=== PATIENT | female | born 1945 | race Caucasian/White ===

== ENCOUNTER 2024-09-25 11:00 | Inpatient (IN) | payer MEDICARE, BC ==
[2024-10-02] MEDS ORDERED: Acetaminophen 160 MG (5 ML) UDCUP ONE ×2 (10:03→10:11)
[2024-10-02] MEDS ORDERED: Ketorolac Tromethamine 30 MG (1 mL) VIAL ONE (10:03)
[2024-10-02] MEDS ORDERED: Midazolam HCl 2 mg/2 ml Vial ONE (10:07)
[2024-10-02] MEDS ORDERED: fentaNYL 50 mcg/mL 1 mL Vial ONE ×3 (10:08→12:24)
[2024-10-02 10:37] LABS: Anion Gap 14 mmol/L (10-20); BUN (Urea Nitrogen) 10 mg/dL (9.8-20.1); Calc. Creatinine Clearance 63 mL/min (70-130); Calcium 9.1 mg/dL (7.8-10.44); Carbon Dioxide 22 mmol/L (23-31); Chloride 103 mmol/L (98-107); Estimated GFR 69; Glucose 114 mg/dL (83-110); Sodium 135 mmol/L (136-145)
[2024-10-02] MEDS ORDERED: Famotidine/PF 20 mg/2ml Vial ONE (10:47)
[2024-10-02] MEDS ORDERED: Lidocaine 1% MPF 2 ML VIAL ONE (10:59)
[2024-10-02] MEDS ORDERED: PROPOFOL 20 ML ONE (11:15)
[2024-10-02] MEDS ORDERED: Rocuronium Bromide 10 MG/ML (10ML VIAL) ONE ×2 (11:15→12:11)
[2024-10-02] MEDS ORDERED: Lidocaine 1% PF 5 ML VIAL ONE (11:15)
[2024-10-02] MEDS ORDERED: ceFOXitin 1 GM VIAL ONE ×2 (11:19→13:24)
[2024-10-02] MEDS ORDERED: PHENYLEPHRINE-NS 100 MCG/ML 10 ML SYRINGE ONE ×2 (11:42→13:28)
[2024-10-02] MEDS ORDERED: SUGAMMADEX SODIUM 200 MG/2 ML VIAL ONE (13:15)
[2024-10-02] MEDS ORDERED: Lidocaine 1% w/Epinephrine 1:200K 30 ML VIAL ONE (13:24)
[2024-10-02] MEDS ORDERED: Dexamethasone 4 mg/ml Vial ONE (14:09)
[2024-10-02] MEDS ORDERED: Ondansetron PF 4 MG/2 ML Vial ONE (14:09)
[2024-10-02] MEDS ORDERED: Nitroglycerin 0.4 MG TAB (25 Tab Bottle) SL PRN (14:41)
[2024-10-02] MEDS ORDERED: Ventolin HFA Inhaler 60 PUFF INHALER INH PRN (14:41)
[2024-10-02] MEDS ORDERED: Ipratropium/Albuterol 3 ML NEB NEB PRN (14:41)
[2024-10-02] MEDS ORDERED: Morphine 2 MG/ML VIAL SLOW IVP PRN (14:41)
[2024-10-02] MEDS ORDERED: Hydrochlorothiazide 25 MG TAB PO PRN (14:41)
[2024-10-02] MEDS ORDERED: hydrALAZINE 20 MG/ML VIAL SLOW IVP PRN (14:41)
[2024-10-02] MEDS ORDERED: Promethazine HCl 25 MG/ML VIAL IM PRN (14:41)
[2024-10-02] MEDS ORDERED: Morphine 4 MG/ML VIAL SLOW IVP PRN (14:41)
[2024-10-02] MEDS: D5 1/2 NS w/20 mEq KCL 1,000 ML IV SCH (15:42)
[2024-10-02] MEDS: Ketorolac Tromethamine 30 MG (1 mL) VIAL IVP SCH (17:06)
[2024-10-02 18:23] VITALS: BMI 26.1
[2024-10-02] MEDS: Famotidine 20 MG TAB PO SCH (20:06)
[2024-10-02] MEDS ORDERED: Famotidine/PF 20 mg/2ml Vial SLOW IVP PRN (21:00)
[2024-10-03 03:33] LABS: #Basophils 0.03 10x3/uL (0.0-0.2); #Monocytes 0.85 10x3/uL (0.0-1.1); #Neutrophils 12.17 10x3/uL (1.5-8.4); %Basophils 0.2 % (0.0-2.0); %Lymphocytes 6.9 % (18.0-47.0); %Neutrophils 86.4 % (40.0-75.0); Hematocrit 35.6 % (34.9-44.5); Hemoglobin 11.9 g/dL (12.0-15.5); Mean Corpuscular HGB CONC 33.4 g/dL (32.0-36.0); Mean Corpuscular Volume 89.7 fL (81.6-98.3); Mean Platelet Volume 9.6 fL (7.4-10.4); Platelet Count 384 10x3/uL (150-450); RBC Distribution Width 14.6 % (11.5-14.5); Red Blood Cell (RBC) Count 3.97 10x6/uL (3.90-5.03); White Blood Cell (WBC) Count 14.1 10x3/uL (3.5-10.5)
[2024-10-03 03:44] LABS: Anion Gap 10 mmol/L (10-20); BUN (Urea Nitrogen) 7 mg/dL (9.8-20.1); Calc. Creatinine Clearance 81 mL/min (70-130); Calcium 8.3 mg/dL (7.8-10.44); Carbon Dioxide 20 mmol/L (23-31); Chloride 106 mmol/L (98-107); Estimated GFR 85; Glucose 159 mg/dL (83-110); Potassium 4.3 mmol/L (3.5-5.1); Sodium 132 mmol/L (136-145)
[2024-10-03] MEDS: Levothyroxine Sodium 100 MCG TAB PO SCH (06:03)
[2024-10-03] MEDS: Estradiol 1 MG TAB PO SCH (08:47)
[2024-10-03] MEDS: HYDROcodone/Acetaminophen 7.5/325 mg Tablet PO PRN (08:48)
[2024-10-03] MEDS: Enoxaparin 40 MG (0.4 mL) SYRINGE SC SCH (08:49)
[2024-10-03] MEDS: D5 1/2 NS w/20 mEq KCL 1,000 ML IV SCH (14:11)
[2024-10-03] MEDS: Acetaminophen 325 MG TAB PO PRN (19:59)
[2024-10-04] MEDS: Ondansetron PF 4 MG/2 ML Vial IVP PRN (01:41)
[2024-10-04] MEDS ORDERED: D5 1/2 NS w/20 mEq KCL 1,000 ML IV SCH (11:45)
[2024-10-05 03:24] LABS: #Basophils 0.11 10x3/uL (0.0-0.2); #Eosinophils 0.32 10x3/uL (0.0-0.5); #Monocytes 0.96 10x3/uL (0.0-1.1); #Neutrophils 5.21 10x3/uL (1.5-8.4); %Basophils 1.2 % (0.0-2.0); %Eosinophils 3.5 % (0.0-6.0); %Lymphocytes 27.4 % (18.0-47.0); %Monocytes 10.5 % (0.0-10.0); Hematocrit 35.9 % (34.9-44.5); Hemoglobin 12.1 g/dL (12.0-15.5); Mean Corpuscular HGB CONC 33.7 g/dL (32.0-36.0); Mean Corpuscular Hemoglobin 30.4 pg (27.0-33.0); Mean Corpuscular Volume 90.2 fL (81.6-98.3); Mean Platelet Volume 9.5 fL (7.4-10.4); Platelet Count 369 10x3/uL (150-450); RBC Distribution Width 15.1 % (11.5-14.5); Red Blood Cell (RBC) Count 3.98 10x6/uL (3.90-5.03); White Blood Cell (WBC) Count 9.2 10x3/uL (3.5-10.5)
[2024-10-05 03:56] LABS: Anion Gap 12 mmol/L (10-20); BUN (Urea Nitrogen) 7 mg/dL (9.8-20.1); Calc. Creatinine Clearance 78 mL/min (70-130); Calcium 8.7 mg/dL (7.8-10.44); Carbon Dioxide 24 mmol/L (23-31); Chloride 103 mmol/L (98-107); Estimated GFR 81; Glucose 94 mg/dL (83-110); Potassium 4.3 mmol/L (3.5-5.1); Sodium 135 mmol/L (136-145)
[2024-10-05 12:58] VITALS: BP 138/58; TEMP 98.2
== END 2024-10-05 13:32 | disposition home or self-care (01) | DRG 331 ==
LOC: CSHTELE 10-02 08:38
PROVIDERS: ADMIT Specialist; ATTEND Specialist
PROC: 0DBN4ZG Excision of Sigmoid Colon, Percutaneous Endoscopic Approach, Hand-Assisted (ICD-10-PCS; principal; 2024-10-02)
DX: K57.92 Diverticulitis of intestine, part unspecified, without perforation or abscess without bleeding (principal); Z79.899 Other long term (current) drug therapy; Z79.82 Long term (current) use of aspirin; E03.9 Hypothyroidism, unspecified; E78.5 Hyperlipidemia, unspecified; M19.90 Unspecified osteoarthritis, unspecified site; Z98.890 Other specified postprocedural states
CPT/HCPCS: 36415; 36416; 80048; 85025; 88307; 94762; A4314; A4333; A4649; J0694; J1100; J1650; J1885; J2250; J2405; J2704; J3010; J3480; J3490

== ENCOUNTER 2024-09-25 11:00 | Outpatient (CLI) | payer MEDICARE, BC ==
[2024-09-25 12:14] LABS: #Basophils 0.09 10x3/uL (0.0-0.2); #Eosinophils 0.28 10x3/uL (0.0-0.5); #Monocytes 1.08 10x3/uL (0.0-1.1); #Neutrophils 6.05 10x3/uL (1.5-8.4); %Basophils 0.9 % (0.0-2.0); %Eosinophils 2.7 % (0.0-6.0); %Lymphocytes 26.7 % (18.0-47.0); %Monocytes 10.5 % (0.0-10.0); %Neutrophils 58.8 % (40.0-75.0); Hematocrit 42.4 % (34.9-44.5); Hemoglobin 13.6 g/dL (12.0-15.5); Mean Corpuscular HGB CONC 32.1 g/dL (32.0-36.0); Mean Corpuscular Hemoglobin 29.4 pg (27.0-33.0); Mean Corpuscular Volume 91.6 fL (81.6-98.3); Mean Platelet Volume 9.3 fL (7.4-10.4); Platelet Count 452 10x3/uL (150-450); RBC Distribution Width 15.4 % (11.5-14.5); Red Blood Cell (RBC) Count 4.63 10x6/uL (3.90-5.03); White Blood Cell (WBC) Count 10.3 10x3/uL (3.5-10.5)
[2024-09-25 12:22] LABS: Anion Gap 11 mmol/L (10-20); BUN (Urea Nitrogen) 12 mg/dL (9.8-20.1); Calc. Creatinine Clearance 0 mL/min (70-130); Calcium 9.2 mg/dL (7.8-10.44); Carbon Dioxide 28 mmol/L (23-31); Chloride 100 mmol/L (98-107); Estimated GFR 75; Glucose 86 mg/dL (83-110); Potassium 4.4 mmol/L (3.5-5.1); Sodium 135 mmol/L (136-145)
[2024-09-25 15:32] LABS: Hemoglobin A1c 5.3 % (4.0-6.0)
== END 2024-09-25 11:01 | disposition home or self-care (01) ==
LOC: CSHLAB 11:00
PROVIDERS: ATTEND Specialist
DX: Z01.818 Encounter for other preprocedural examination (principal); K57.32 Diverticulitis of large intestine without perforation or abscess without bleeding
CPT/HCPCS: 71046; 80048; 83036; 85025; 93005; 93010